=== PATIENT | female | born 1980 | race Caucasian/White ===

== ENCOUNTER 2018-10-18 14:24 | Emergency (ER) | payer MEDICAID ==
[2018-10-18 14:28] VITALS: BP 152/111
--- NOTE | 2018-10-18 14:41 | ER Report ---
History and Physical Time Seen By MD: 14:39 HPI/ROS CHIEF COMPLAINT: Alcohol abuse HISTORY OF PRESENT ILLNESS: 38 year female comes emergency department today asking for alcohol detoxification admission for inpatient management. Patient states she drinks heavily about a 5th of vodka daily. Patient states she's been doing this for about a year and a half but is been a relatively heavy drinker for the last 5 years. Patient states she has lost all custody of both of her daughters. Patient states she does live alone drinks daily. Patient is unable to work and financial supported by her estranged . Patient denies being suicidal homicidal or gravely disabled. Patient states she denies alcohol use correction alcohol but does deny drug use except for marijuana. Patient has no physical complaints. REVIEW OF SYSTEMS: Respiratory: No cough, no dyspnea. Cardiovascular: No chest pain, no palpitations. Gastrointestinal: No vomiting, no abdominal pain. Musculoskeletal: No back pain. Remainder of the 14 system rev: Yes Allergies: Coded Allergies: No Known Drug Allergies (Unverified , 10/18/18) Home Meds Reported Medications Gabapentin (GABAPENTIN) 300 Mg Capsule, PO TID, CAPSULE 10/18/18 Omeprazole (OMEPRAZOLE) 40 Mg Capsule.dr, 1 CAP PO QDAY 10/18/18 Levothyroxine Sodium (LEVOTHYROXINE SODIUM) 50 Mcg Tablet, 1 TAB PO QAM 10/18/18 Quetiapine Fumarate (SEROQUEL) 25 Mg Tablet, PO QHS 10/18/18 Duloxetine Hcl (CYMBALTA) 60 Mg Capsule.dr, 60 MG PO BID, #10 CAP 10/18/18 Reviewed Nurses Notes: Yes Old Medical Records Reviewed: Yes Constitutional Vital Sign - Last 24 Hours 10/18/18 10/18/18 14:28 14:28 Temp 98.5 Pulse 122 Resp 20 B/P (MAP) 152/111 Pulse Ox 94 O2 Delivery Room Air O2 Flow Rate 2.0 Physical Exam General Appearance: [The patient is alert, has no immediate need for airway protection and no current signs of toxicity.] [ ] Eyes: Pupils equal and round no injection. Respiratory: Chest is non tender, lungs are clear to auscultation. Cardiac: regular rate and rhythm [ ] Gastrointestinal: Abdomen is soft and non tender, no masses, bowel sounds normal. Musculoskeletal: Neck: Neck is supple and non tender. Extremities have full range of motion and are non tender. Skin: No rashes or lesions. [ ] DIFFERENTIAL DIAGNOSIS: After history and physical exam differential diagnosis was considered for alcohol abuse alcohol intoxication Medical Decision Making Data Points Result Diagram: 10/18/18 1449 10/18/18 1449 Laboratory Hematology Test 10/18/18 14:28 10/18/18 14:49 Urine Color Clau Urine Clarity Slightly-cloudy Urine pH 6.0 pH (4.8-9.5) Urine Specific [place] 1.019 Urine Protein 100 mg/dL (NEGATIVE) Urine Glucose (UA) Negative mg/dL (NEGATIVE) Urine Ketones Negative mg/dL (NEGATIVE) Urine Blood Small (NEGATIVE) Urine Nitrite Negative (NEGATIVE) Urine Bilirubin Negative (NEGATIVE) Urine Urobilinogen 1.0 mg/dL (0.2-1.9) Urine Leukocyte Esterase Negative (NEGATIVE) Urine RBC 1 /HPF (0-2/HPF) Urine WBC 5 /HPF (0-5/HPF) Urine Squamous Epithelial Cells Many /LPF (</=FEW) Urine Bacteria Few /HPF (NONE-FEW) Urine Hyaline Casts Many /LPF (NONE-FEW) Urine Mucus Few /HPF (NONE-FEW) Urine HCG, Qualitative Negative (NEGATIVE) Urine Opiates Screen Negative Urine Barbiturates Screen Negative Ur Tricyclic Antidepressants Screen Negative Urine Phencyclidine Screen Negative Urine Amphetamines Screen Negative Urine Benzodiazepines Screen Positive Urine Cocaine Screen Negative Urine Cannabinoids Screen Negative Red Blood Count 5.36 M/uL (4.17-5.56) Mean Corpuscular Volume 101.3 fL (80.0-96.0) Mean Corpuscular Hemoglobin 34.2 pg (26.0-33.0) Mean Corpuscular Hemoglobin Concent 33.7 g/dL (32.0-36.0) Red Cell Distribution Width 14.6 % (11.5-14.5) Mean Platelet Volume 8.6 fL (7.2-11.1) Neutrophils (%) (Auto) 40.3 % (39.4-72.5) Lymphocytes (%) (Auto) 48.6 % (17.6-49.6) Monocytes (%) (Auto) 10.3 % (4.1-12.4) Eosinophils (%) (Auto) 0.4 % (0.4-6.7) Basophils (%) (Auto) 0.4 % (0.3-1.4) Nucleated RBC Relative Count (auto) 0.2 /100WBC Neutrophils # (Auto) 2.1 K/uL (2.0-7.4) Lymphocytes # (Auto) 2.6 K/uL (1.3-3.6) Monocytes # (Auto) 0.5 K/uL (0.3-1.0) Eosinophils # (Auto) 0.0 K/uL (0.0-0.5) Basophils # (Auto) 0.0 K/uL (0.0-0.1) Nucleated RBC Absolute Count (auto) 0.01 K/uL Sodium Level 146 mmol/L (137-145) Potassium Level 3.1 mmol/L (3.5-5.0) Chloride Level 101 mmol/L (98-107) Carbon Dioxide Level 31 mmol/L (22-31) Blood Urea Nitrogen 3 mg/dl (7-18) Creatinine 0.90 mg/dl (0.52-1.04) Glomerular Filtration Rate Calc > 60.0 Random Glucose 203 mg/dl (75-110) Calcium Level 9.4 mg/dl (8.4-10.2) Magnesium Level 1.7 mg/dl (1.7-2.2) Total Bilirubin 0.8 mg/dl (0.2-1.3) Aspartate Amino Transf (AST/SGOT) 297 U/L (0-35) Alanine Aminotransferase (ALT/SGPT) 81 U/L (0-56) Alkaline Phosphatase 170 U/L (0-126) Total Protein 9.3 g/dl (6.3-8.2) Albumin 4.8 g/dl (3.5-5.0) Salicylates Level < 10 mg/L Salicylate Last Dose Date unk Acetaminophen Level < 10 ug/ml Serum Alcohol 393 mg/dl Chemistry Test 10/18/18 14:28 10/18/18 14:49 Urine Color Clau Urine Clarity Slightly-cloudy Urine pH 6.0 pH (4.8-9.5) Urine Specific [place] 1.019 Urine Protein 100 mg/dL (NEGATIVE) Urine Glucose (UA) Negative mg/dL (NEGATIVE) Urine Ketones Negative mg/dL (NEGATIVE) Urine Blood Small (NEGATIVE) Urine Nitrite Negative (NEGATIVE) Urine Bilirubin Negative (NEGATIVE) Urine Urobilinogen 1.0 mg/dL (0.2-1.9) Urine Leukocyte Esterase Negative (NEGATIVE) Urine RBC 1 /HPF (0-2/HPF) Urine WBC 5 /HPF (0-5/HPF) Urine Squamous Epithelial Cells Many /LPF (</=FEW) Urine Bacteria Few /HPF (NONE-FEW) Urine Hyaline Casts Many /LPF (NONE-FEW) Urine Mucus Few /HPF (NONE-FEW) Urine HCG, Qualitative Negative (NEGATIVE) Urine Opiates Screen Negative Urine Barbiturates Screen Negative Ur Tricyclic Antidepressants Screen Negative Urine Phencyclidine Screen Negative Urine Amphetamines Screen Negative Urine Benzodiazepines Screen Positive Urine Cocaine Screen Negative Urine Cannabinoids Screen Negative White Blood Count 5.3 k/uL (4.5-11.0) Red Blood Count 5.36 M/uL (4.17-5.56) Hemoglobin 18.3 g/dL (12.0-16.0) Hematocrit 54.3 % (34.0-47.0) Mean Corpuscular Volume 101.3 fL (80.0-96.0) Mean Corpuscular Hemoglobin 34.2 pg (26.0-33.0) Mean Corpuscular Hemoglobin Concent 33.7 g/dL (32.0-36.0) Red Cell Distribution Width 14.6 % (11.5-14.5) Platelet Count 144 K/uL (150-450) Mean Platelet Volume 8.6 fL (7.2-11.1) Neutrophils (%) (Auto) 40.3 % (39.4-72.5) Lymphocytes (%) (Auto) 48.6 % (17.6-49.6) Monocytes (%) (Auto) 10.3 % (4.1-12.4) Eosinophils (%) (Auto) 0.4 % (0.4-6.7) Basophils (%) (Auto) 0.4 % (0.3-1.4) Nucleated RBC Relative Count (auto) 0.2 /100WBC Neutrophils # (Auto) 2.1 K/uL (2.0-7.4) Lymphocytes # (Auto) 2.6 K/uL (1.3-3.6) Monocytes # (Auto) 0.5 K/uL (0.3-1.0) Eosinophils # (Auto) 0.0 K/uL (0.0-0.5) Basophils # (Auto) 0.0 K/uL (0.0-0.1) Nucleated RBC Absolute Count (auto) 0.01 K/uL Glomerular Filtration Rate Calc > 60.0 Calcium Level 9.4 mg/dl (8.4-10.2) Magnesium Level 1.7 mg/dl (1.7-2.2) Total Bilirubin 0.8 mg/dl (0.2-1.3) Aspartate Amino Transf (AST/SGOT) 297 U/L (0-35) Alanine Aminotransferase (ALT/SGPT) 81 U/L (0-56) Alkaline Phosphatase 170 U/L (0-126) Total Protein 9.3 g/dl (6.3-8.2) Albumin 4.8 g/dl (3.5-5.0) Salicylates Level < 10 mg/L Salicylate Last Dose Date unk Acetaminophen Level < 10 ug/ml Serum Alcohol 393 mg/dl Toxicology Test 10/18/18 14:28 10/18/18 14:49 Urine Opiates Screen Negative Urine Barbiturates Screen Negative Ur Tricyclic Antidepressants Screen Negative Urine Phencyclidine Screen Negative Urine Amphetamines Screen Negative Urine Benzodiazepines Screen Positive Urine Cocaine Screen Negative Urine Cannabinoids Screen Negative Salicylates Level < 10 mg/L Salicylate Last Dose Date unk Acetaminophen Level < 10 ug/ml Serum Alcohol 393 mg/dl Urinalysis Test 10/18/18 14:28 Urine Color Clau Urine Clarity Slightly-cloudy Urine pH 6.0 pH (4.8-9.5) Urine Specific [place] 1.019 Urine Protein 100 mg/dL (NEGATIVE) Urine Glucose (UA) Negative mg/dL (NEGATIVE) Urine Ketones Negative mg/dL (NEGATIVE) Urine Blood Small (NEGATIVE) Urine Nitrite Negative (NEGATIVE) Urine Bilirubin Negative (NEGATIVE) Urine Urobilinogen 1.0 mg/dL (0.2-1.9) Urine Leukocyte Esterase Negative (NEGATIVE) Urine RBC 1 /HPF (0-2/HPF) Urine WBC 5 /HPF (0-5/HPF) Urine Squamous Epithelial Cells Many /LPF (</=FEW) Urine Bacteria Few /HPF (NONE-FEW) Urine Hyaline Casts Many /LPF (NONE-FEW) Urine Mucus Few /HPF (NONE-FEW) Urine HCG, Qualitative Negative (NEGATIVE) ED Course/Re-evaluation ED Course ED course 38-year-old female comes in for alcohol detoxification alcohol abuse is requesting inpatient seen and evaluated by behavioral health admitted to behavioral services Ciara Ruffin 393 she does have AST and ALTs ray shows consistent with liver dysfunction from alcohol abuse evidently she also been recently released from care home for DY patient is signing is a voluntary admission for alcohol abuse and detoxification Decision to Disposition Date: October 18, 2018 Decision to Disposition Time: 15:50 Depart Departure Latest Vital Signs Vital Signs Date Time Temp Pulse Resp B/P (MAP) Pulse Ox O2 Delivery O2 Flow Rate FiO2 10/18/18 14:28 98.5 122 20 152/111 94 Room Air 10/18/18 14:28 2.0 Impression: Primary Impression: Alcohol abuse Condition: Stable Disposition: Admitted from ER LIANNE SEE MD October 18, 2018 14:41
[2018-10-18] MEDS ORDERED: ONDANSETRON 4 MG ODT TABDP SL ONE (14:55)
[2018-10-18 15:02] LABS: PLATELET COUNT, AUTOMATED 144 K/uL (150-450)
[2018-10-18] MEDS ORDERED: OMEP40CA48 PO (15:26)
[2018-10-18] MEDS ORDERED: QUET25TA30 PO (15:26)
[2018-10-18] MEDS ORDERED: LEVO50TA86 PO (15:26)
[2018-10-18] MEDS ORDERED: DULO60CA56 PO (15:26)
[2018-10-18] MEDS ORDERED: GABA-549 PO (15:26)
== END 2018-10-18 16:20 | disposition other institution (70) ==
LOC: ER 14:49
DX: F10.220 Alcohol dependence with intoxication, uncomplicated (principal); Y90.8 Blood alcohol level of 240 mg/100 ml or more
CPT/HCPCS: 36415; 80305; 81001; 81025; 83735; 84443; 85025; 99284; G0480; S0119; 80320; 80329; 82040; 82247; 82310; 82374; 82435; 82565; 82947; 84075; 84132; 84155; 84295; 84450; 84460; 84520

== ENCOUNTER 2018-10-18 15:55 | Inpatient (IN) | payer MEDICAID ==
[~2018-10-18] VITALS: Ht 172.7 cm; Wt 93.4 kg
[~2018-10-18 15:55] MED LIST: DULO60CA56 PO; GABA-549 PO; LEVO50TA86 PO; OMEP40CA48 PO; QUET25TA30 PO
[2018-10-18 16:45] VITALS: BP 130/98
[2018-10-18] MEDS ORDERED: NICOTINE CARTRIDGE 1 EA PO PRN (17:30)
[2018-10-18] MEDS ORDERED: MAG HYD/AL HYD/SIMETH 30ML UDC PO PRN (17:45)
[2018-10-18 18:30] VITALS: BP 132/112
[2018-10-18 19:28] VITALS: BP 130/100
[2018-10-18] MEDS: DIAZEPAM 10 MG TAB PO PRN ×3 (20:42→23:16)
[2018-10-18] MEDS: PANTOPRAZOLE SOD 20 MG TABEC PO SCH (20:42)
[2018-10-18] MEDS: DULoxetine HCL 30 MG CAPCR PO SCH (20:43)
[2018-10-18] MEDS: GABAPENTIN 300 MG CAP PO SCH (20:43)
[2018-10-19 01:00] VITALS: BP 134/98
[2018-10-19] MEDS: DIAZEPAM 10 MG TAB PO PRN ×16 (01:07→21:34)
[2018-10-19] MEDS: LEVOTHYROXINE SOD 0.05 MG TAB PO SCH (06:00)
[2018-10-19 06:08] VITALS: BP 127/100
[2018-10-19 07:50] VITALS: BP 140/106
[2018-10-19] MEDS: FOLIC ACID 1 MG TAB PO SCH (08:32)
[2018-10-19] MEDS: MULTIVITAMINS PO SCH (08:32)
[2018-10-19] MEDS: THIAMINE HCL 100 MG TAB PO SCH (08:32)
[2018-10-19] MEDS: DULoxetine HCL 30 MG CAPCR PO SCH ×2 (08:32→20:20)
[2018-10-19] MEDS: PANTOPRAZOLE SOD 20 MG TABEC PO SCH (08:32)
[2018-10-19] MEDS: GABAPENTIN 300 MG CAP PO SCH ×3 (08:32→20:20)
[2018-10-19] MEDS ORDERED: LOPERAMIDE HCL 2 MG CAP PO PRN (08:55)
[2018-10-19] MEDS ORDERED: LOPERAMIDE HCL 2 MG CAP PO ONE (08:55)
[2018-10-19 11:05] VITALS: BP 138/104
[2018-10-19] MEDS: ONDANSETRON 4 MG TAB PO PRN (12:09)
[2018-10-19] MEDS ORDERED: LISINOPRIL 10 MG TAB PO ONE (16:45)
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
[2018-10-19 19:09] VITALS: BP 129/92
[2018-10-20] MEDS: LEVOTHYROXINE SOD 0.05 MG TAB PO SCH (06:13)
[2018-10-20 06:30] VITALS: BP 104/61
[2018-10-20] MEDS: MULTIVITAMINS PO SCH (08:19)
[2018-10-20] MEDS: GABAPENTIN 300 MG CAP PO SCH ×3 (08:19→21:01)
[2018-10-20] MEDS: DULoxetine HCL 30 MG CAPCR PO SCH ×2 (08:20→21:01)
[2018-10-20] MEDS: THIAMINE HCL 100 MG TAB PO SCH (08:20)
[2018-10-20] MEDS: FOLIC ACID 1 MG TAB PO SCH (08:20)
[2018-10-20] MEDS: PANTOPRAZOLE SOD 20 MG TABEC PO SCH (08:20)
[2018-10-20] MEDS: ONDANSETRON 4 MG TAB PO PRN (08:24)
[2018-10-20] MEDS ORDERED: LISINOPRIL 10 MG TAB PO SCH (09:00)
[2018-10-20] MEDS: IBUPROFEN 600 MG TAB PO PRN ×2 (12:20→19:25)
[2018-10-20] MEDS: DIAZEPAM 10 MG TAB PO PRN ×3 (12:35→19:25)
[2018-10-20 15:43] VITALS: BP 108/82
--- NOTE | 2018-10-20 17:15 | BHS Progress Note ---
[facility] - Subjective Progress Notes Subjective Deisy is still in withdrawal. We have been medicating her per the [facility] protocol but concerned about her oxygen desaturations. After a dose of 10 mgs earlier today, she dozed off and was desaturating into the 70's. When we administered oxygen per the nasal cannula, this stabilized, but was a source of concern. She has not been as hypertensive as expected with the lisinopril I started yesterday. We stopped it fearing she might become hypotensive if it were continued. I spoke to Deisy briefly early this afternoon. She is drowsy from the diazepam but says that she is fine. She was uncomfortable before the Valium and is getting relief with it. Deisy's fasting blood sugar was 116 this morning and her hemoglobin A1c was 6.2 suggesting she has diabetes. I do not know if this is related to pancreatic damage or to insulin resistance or both. [facility] - Objective Physical Exam Vital Signs Vital Signs 10/19/18 10/20/18 10/20/18 19:09 06:30 13:50 Temp 96.7 Pulse 99 Resp 15 B/P (MAP) 104/61 (75) Pulse Ox 76 O2 Delivery Nasal Cannula O2 Flow Rate 2.0 Muscle Strength and Tone: Other (is sedated with the diazepam) Gait and Station: Unsteady [facility] Medications Reviewed: Side Effects, Benefits of Medication, Risks Allergies Reviewed: Yes Mental Status Exam General Appearance: Casual, Well Groomed, Good Eye Contact, Cooperative, Polite, Good Interaction Speech: Clear, Delayed, Other (sleepy) Mood: Euthymic Affect: Other (calm but drowsy) Thought Process: Organized, Logical Cognition: Other (sleepy) Intelligence: Average Insight Judgment: Good Lab Hematology Test 10/19/18 00:00 10/19/18 05:54 Fasting Glucose 113 mg/dl (75-110) Hemoglobin A1c 6.2 % (4.6-6.0) Chemistry Test 10/19/18 00:00 10/19/18 05:54 Fasting Glucose 113 mg/dl (75-110) Hemoglobin A1c 6.2 % (4.6-6.0) [facility] Assessment and Plan [id number] Encounter Date: October 20, 2018 [id number] Encounter Time: 13:30 [facility] Plan: Admit to Unit, Necessary Precautions, Individual/Group Therapy, Admin/Titrate Meds, Educate Patient Problems: (1) Hyperglycemia Status: Chronic Assessment & Plan: Will need to address hyperglycemia once withdrawal is comp leted. (2) Obesity (BMI 30-39.9) Status: Chronic (3) Alcohol withdrawal Status: Acute (4) Alcohol use disorder, severe, dependence (5) Hypoxemia requiring supplemental oxygen Status: Acute Assessment & Plan: Will reduce typical dose of diazepam on the [facility] protocol and continue supplemental oxygen when asleep. THEODORE NG DO October 20, 2018 17:15
[2018-10-20] MEDS: DIAZEPAM 5 MG TAB PO PRN ×2 (21:01→22:06)
[2018-10-21 05:45] VITALS: BP 125/89
[2018-10-21] MEDS: LEVOTHYROXINE SOD 0.05 MG TAB PO SCH (05:45)
[2018-10-21] MEDS: ONDANSETRON 4 MG TAB PO PRN (08:04)
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
[2018-10-21] MEDS: GABAPENTIN 300 MG CAP PO SCH ×3 (09:04→21:10)
[2018-10-21] MEDS: DULoxetine HCL 30 MG CAPCR PO SCH ×2 (09:04→21:10)
[2018-10-21] MEDS: PANTOPRAZOLE SOD 20 MG TABEC PO SCH (09:04)
[2018-10-21] MEDS: FOLIC ACID 1 MG TAB PO SCH (09:04)
[2018-10-21] MEDS: IBUPROFEN 600 MG TAB PO PRN (09:04)
[2018-10-21] MEDS: THIAMINE HCL 100 MG TAB PO SCH (09:04)
[2018-10-21] MEDS: MULTIVITAMINS PO SCH (09:04)
[2018-10-21 09:45] VITALS: BP 126/82
[2018-10-21] MEDS: DIAZEPAM 5 MG TAB PO PRN ×4 (10:43→21:10)
[2018-10-21 12:45] VITALS: BP 122/88
[2018-10-21] MEDS: NICOTINE INH SYSTEM 10 MG/INH INH PRN (18:24)
[2018-10-21 21:15] VITALS: BP_SYST 123; BP_SYST 140; BP_DIAS 105; BP_DIAS 99
[2018-10-22 06:00] VITALS: BP 130/101
[2018-10-22] MEDS: LEVOTHYROXINE SOD 0.05 MG TAB PO SCH (06:00)
[2018-10-22] MEDS: PANTOPRAZOLE SOD 20 MG TABEC PO SCH (08:29)
[2018-10-22] MEDS: GABAPENTIN 300 MG CAP PO SCH ×3 (08:29→21:05)
[2018-10-22] MEDS: FOLIC ACID 1 MG TAB PO SCH (08:29)
[2018-10-22] MEDS: THIAMINE HCL 100 MG TAB PO SCH (08:29)
[2018-10-22] MEDS: MULTIVITAMINS PO SCH (08:29)
[2018-10-22] MEDS: DULoxetine HCL 30 MG CAPCR PO SCH ×2 (08:30→21:06)
[2018-10-22] MEDS: IBUPROFEN 600 MG TAB PO PRN ×2 (08:32→18:03)
--- NOTE | 2018-10-22 09:48 | BHS Progress Note ---
S - Subjective Progress Notes Subjective Deisy is feeling better physically today. She needed 20 mgs of Valium yesterday but the withdrawal has been controlled and we have used lower doses of Valium than we usually do because of Deisy's hypoxemia. Last dose was last night. She still has some nausea, did not sleep well because she couldn't get comfortable and woke up a lot. Deisy talked to brother by phone. She has moved to [place] and she did not know as they had not talked in some time. "He kind of gave me a lecture" but she was glad she called him. We talked about who else could give her support. Deisy has written a letter entitled "Why I need to go to treatment" and she read it to us. The letter was compelling. She said she wants to "live . . . save my live . . . be a great mom." She feels a lot of shame and guilt because of her drinking and she talked about that. "I need help with the emotions I have covered up with drinking." She talked about the stresses contributing to her drinking including the loss of her parents as well as social isolation. We talked about aftercare options since Deisy will complete her detox before she can go to residential treatment. I suggested she not go to her house and suggested [facility] in [place]. Suicidal Ideation: None Homicidal Ideation: None S - Objective Physical Exam Vital Signs Vital Signs 10/22/18 10/22/18 10/22/18 06:00 14:00 17:59 Temp 97.8 Pulse 80 Resp 18 B/P (MAP) 122/90 (101) Pulse Ox 92 O2 Delivery Room Air O2 Flow Rate 2.0 Muscle Strength and Tone: WNL Gait and Station: Steady [facility] Medications Reviewed: Side Effects, Benefits of Medication, Risks Allergies Reviewed: Yes Mental Status Exam General Appearance: Casual, Well Groomed, Good Eye Contact, Cooperative, Polite, Good Interaction Speech: Clear, Spontaneous, Normal Rate, Normal Rhythm, Normal Volume, Normal Tone Mood: Dysthmic/Depressed Affect: Full and Appropriate, Sad, Tearful Thought Process: Organized, Logical, Goal Directed Thought Content: No Suicidal Ideation, No Homicidal Ideation Sensorium: Clear Cognition: Alert & Oriented-Person, Alert & Oriented-Place, Alert & Oriented- Time, Bofkr-Jkygohqs-Gmlvtxytz Memory: Immediate, Recent, Remote Intelligence: Average Insight Judgment: Good [facility] Assessment and Plan Alfz-dp-Rgnw Encounter Date: October 22, 2018 Kpqm-ce-Ztbc Encounter Time: 10:30 [facility] Plan: Admit to Unit, Necessary Precautions, Individual/Group Therapy, Admin/Titrate Meds, Educate Patient Problems: (1) Hyperglycemia Status: Chronic Assessment & Plan: We need to recheck Deisy's blood sugar once she has completed detox and she may need to start metformin. We talked about her risk of diabetes and the importance of weight loss. (2) Obesity (BMI 30-39.9) Status: Chronic (3) Alcohol withdrawal Status: Acute (4) Alcohol use disorder, severe, dependence (5) Hypoxemia requiring supplemental oxygen Status: Acute Assessment & Plan: I have ordered an overnight pulse oximetry to be dong tomorrow night when Deisy is, hopefully, no longer on Valium. She has many symptoms suggestive of SUZANNE. Problem Qualifiers (1) Alcohol withdrawal: Complication of substance-induced condition: uncomplicated Qualified Codes: F10.230 - Alcohol dependence with withdrawal, uncomplicated THEODORE NG DO October 22, 2018 09:48
[2018-10-22 10:15] VITALS: BP 124/92
[2018-10-22] MEDS: DIAZEPAM 5 MG TAB PO PRN ×3 (10:22→20:13)
[2018-10-22 14:00] VITALS: BP 124/88
[2018-10-22 17:59] VITALS: BP 122/90
[2018-10-22] MEDS: ONDANSETRON 4 MG TAB PO PRN (18:03)
[2018-10-23] MEDS: LEVOTHYROXINE SOD 0.05 MG TAB PO SCH (05:52)
[2018-10-23 06:01] VITALS: BP 125/85
[2018-10-23] MEDS: GABAPENTIN 300 MG CAP PO SCH ×3 (08:18→20:53)
[2018-10-23] MEDS: MULTIVITAMINS PO SCH (08:18)
[2018-10-23] MEDS: FOLIC ACID 1 MG TAB PO SCH (08:18)
[2018-10-23] MEDS: DULoxetine HCL 30 MG CAPCR PO SCH ×2 (08:18→20:53)
[2018-10-23] MEDS: THIAMINE HCL 100 MG TAB PO SCH (08:18)
[2018-10-23] MEDS: PANTOPRAZOLE SOD 20 MG TABEC PO SCH (08:18)
[2018-10-23 09:57] VITALS: BP 130/96
[2018-10-23] MEDS: DIAZEPAM 5 MG TAB PO PRN (10:38)
[2018-10-23] MEDS: IBUPROFEN 600 MG TAB PO PRN (10:39)
[2018-10-23 13:00] VITALS: BP 117/89
[2018-10-23] MEDS: NICOTINE INH SYSTEM 10 MG/INH INH PRN ×2 (13:59→16:57)
--- NOTE | 2018-10-23 15:27 | RADIOLOGY IMAGING REPORT ---
FACILITY: [facility] PATIENT NAME: Deisy Song : 1980 MR: [id number] V: [id number] EXAM DATE: ORDERING PHYSICIAN: KATHI BHATTI TECHNOLOGIST: Location: [facility] Patient: Deisy Song : 1980 Visit/Account:[id number] Date of Sevice: 10/23/2018 CHEST PA LAT COMPARISON: None. HISTORY: Hypoxemia FINDINGS: CARDIAC/VASC: No cardiac silhouette abnormality or cardiomegaly. Unremarkable pulmonary vasculatu re. MEDIASTINUM: No visible mass or adenopathy. LUNGS/PLEURA: No pneumothorax. No significant pulmonary parenchymal abnormalities. No effusion or p leural thickening. BONES: No fracture or visible bony lesion. Mild multilevel thoracic spine degenerative changes. OTHER: Cholecystectomy clips in the right upper quadrant of the abdomen IMPRESSION: No acute cardiopulmonary process. Report Dictated By: Jason Porter at 10/23/2018 3:22 PM Report E-Signed By: Jason Porter at 10/23/2018 3:23 PM WSN:[id number]
[2018-10-23] MEDS ORDERED: LORazepam 1 MG TAB PO PRN (19:50)
[2018-10-23 20:15] VITALS: BP 122/98
--- NOTE | 2018-10-23 21:11 | BHS Progress Note ---
[facility] - Subjective Progress Notes Subjective Pt seen in treatment team meeting. Pt still scoring on CIWA, though scores lower bit by bit. Says she doesn't like how the valium makes her feel slowed down but understands need for safe detox.. if she continues to score on CIWA we will try ativan, and she was OK with this. She is discouraged today because of the holiday, since we can't contact rehab programs-- she would like to get into [facility] in [place]. Will go ahead and fax her application there today, then contact them tomorrow. PPD was negative. Pt is attending groups and is active in her treatment. Continue same. Suicidal Ideation: None Homicidal Ideation: None [facility] - Objective Physical Exam Vital Signs Vital Signs 10/23/18 10/23/18 06:01 13:00 Temp 98.3 Pulse 91 Resp 15 B/P (MAP) 117/89 (98) Pulse Ox 88 O2 Delivery Room Air O2 Flow Rate 1.0 Muscle Strength and Tone: WNL Gait and Station: Steady [facility] Medications Reviewed: Side Effects, Benefits of Medication, Risks Allergies Reviewed: Yes Mental Status Exam General Appearance: Casual, Well Groomed, Good Eye Contact, Cooperative, Polite, Good Interaction Speech: Clear, Spontaneous, Normal Rate, Normal Rhythm, Normal Volume, Normal Tone Mood: Dysthmic/Depressed Affect: Full and Appropriate, Sad, Tearful Thought Process: Organized, Logical, Goal Directed Thought Content: No Suicidal Ideation, No Homicidal Ideation, No Delusions, No Auditory Halllucinations, No Visual Hallucinations, No Thought Broadcasting, No Ideas of Reference, No Obsessions, No Compulsions, No Other Sensorium: Clear Cognition: Alert & Oriented-Person, Alert & Oriented-Place, Alert & Oriented- Time, Ljwgr-Tychrnwl-Oxmxhwykm Memory: Immediate, Recent, Remote Intelligence: Average Insight Judgment: Good [facility] Assessment and Plan Nvln-do-Qtqi Encounter Date: October 23, 2018 Seqy-ll-Slik Encounter Time: 11:00 [facility] Plan: Necessary Precautions, Individual/Group Therapy, Admin/Titrate Meds, Educate Patient Tobacco Medications: Started Multpiple Antipsychotics Used: No Problems: (1) Alcohol use disorder, severe, dependence (2) Alcohol withdrawal Status: Acute Problem Qualifiers (1) Alcohol withdrawal: Complication of substance-induced condition: uncomplicated Qualified Codes: F10.230 - Alcohol dependence with withdrawal, uncomplicated KATHI BHATTI MD October 23, 2018 21:11
[2018-10-24] MEDS: LEVOTHYROXINE SOD 0.05 MG TAB PO SCH (05:17)
[2018-10-24 05:30] VITALS: BP 117/79
[2018-10-24] MEDS: DULoxetine HCL 30 MG CAPCR PO SCH ×2 (08:23→20:39)
[2018-10-24] MEDS: FOLIC ACID 1 MG TAB PO SCH (08:23)
[2018-10-24] MEDS: MULTIVITAMINS PO SCH (08:24)
[2018-10-24] MEDS: PANTOPRAZOLE SOD 20 MG TABEC PO SCH (08:24)
[2018-10-24] MEDS: THIAMINE HCL 100 MG TAB PO SCH (08:24)
[2018-10-24] MEDS: GABAPENTIN 300 MG CAP PO SCH ×3 (08:24→20:39)
[2018-10-24 08:30] VITALS: BP 144/105
[2018-10-24] MEDS: IBUPROFEN 600 MG TAB PO PRN (09:52)
[2018-10-24] MEDS: NALTREXONE HCL 50 MG TAB PO SCH (09:52)
--- NOTE | 2018-10-24 09:54 | BHS Progress Note ---
[facility] - Subjective Progress Notes Subjective Pt seen in conference room. Detox is near complete, last benzo was last night at 10 pm. She scored 8 on CIWA today-- medicated with advil for [place], not given a benzo. Pt had continuous pulse ox last night which shows likely sleep apnea, will refer for sleep study. CXR was WNL. Looking for a detox bed, application sent to [facility]. She was refused at [facility] because they no longer house pt's who are waiting for rehab. Suicidal Ideation: None Homicidal Ideation: None S - Objective Physical Exam Vital Signs Vital Signs 10/23/18 10/24/18 06:01 08:30 Temp 98.4 Pulse 109 Resp 18 B/P (MAP) 144/105 (118) Pulse Ox 87 O2 Delivery Room Air O2 Flow Rate 1.0 Muscle Strength and Tone: WNL Gait and Station: Steady [facility] Medications Reviewed: Side Effects, Benefits of Medication, Risks Allergies Reviewed: Yes Mental Status Exam General Appearance: Casual, Well Groomed, Good Eye Contact, Cooperative, Polite, Good Interaction Speech: Clear, Spontaneous, Normal Rate, Normal Rhythm, Normal Volume, Normal Tone Mood: Dysthmic/Depressed Affect: Full and Appropriate, Sad Thought Process: Organized, Logical, Goal Directed Thought Content: No Suicidal Ideation, No Homicidal Ideation, No Delusions, No Auditory Halllucinations, No Visual Hallucinations, No Thought Broadcasting, No Ideas of Reference, No Obsessions, No Compulsions, No Other Sensorium: Clear Cognition: Alert & Oriented-Person, Alert & Oriented-Place, Alert & Oriented- Time, Jhrrg-Ibrhtttr-Mqoncoaxc Memory: Immediate, Recent, Remote Intelligence: Average Insight Judgment: Good [facility] Assessment and Plan Sghb-xs-Tpwm Encounter Date: October 24, 2018 Uofh-ea-Ncpn Encounter Time: 09:00 [facility] Plan: Necessary Precautions, Individual/Group Therapy, Admin/Titrate Meds, Educate Patient Tobacco Medications: Started Multpiple Antipsychotics Used: No Problems: (1) Alcohol use disorder, severe, dependence (2) Alcohol withdrawal Status: Acute Problem Qualifiers (1) Alcohol withdrawal: Complication of substance-induced condition: uncomplicated Qualified Codes: F10.230 - Alcohol dependence with withdrawal, uncomplicated KATHI BHATTI MD October 24, 2018 09:54
[2018-10-24 12:30] VITALS: BP 122/96
[2018-10-24 14:20] VITALS: BP 128/98
[2018-10-24 18:23] VITALS: BP 128/90
[2018-10-24] MEDS: NICOTINE INH SYSTEM 10 MG/INH INH PRN (21:09)
[2018-10-25] MEDS: LEVOTHYROXINE SOD 0.05 MG TAB PO SCH (05:41)
[2018-10-25 06:06] VITALS: BP 129/83
[2018-10-25] MEDS: FOLIC ACID 1 MG TAB PO SCH (08:25)
[2018-10-25] MEDS: DULoxetine HCL 30 MG CAPCR PO SCH ×2 (08:25→20:32)
[2018-10-25] MEDS: PANTOPRAZOLE SOD 20 MG TABEC PO SCH (08:25)
[2018-10-25] MEDS: NALTREXONE HCL 50 MG TAB PO SCH (08:25)
[2018-10-25] MEDS: GABAPENTIN 300 MG CAP PO SCH ×3 (08:25→20:31)
[2018-10-25] MEDS: THIAMINE HCL 100 MG TAB PO SCH (08:26)
[2018-10-25] MEDS: MULTIVITAMINS PO SCH (08:26)
[2018-10-25] MEDS: IBUPROFEN 600 MG TAB PO PRN (12:08)
[2018-10-25] MEDS: NICOTINE INH SYSTEM 10 MG/INH INH PRN (15:28)
--- NOTE | 2018-10-25 18:02 | BHS Progress Note ---
[facility] - Subjective Progress Notes Subjective Pt seen in treatment team meeting with her outpatient therapist on speaker phone. Pt has completed her detox. Pt was confronted by therapist bc they had already arranged a detox for her at [facility] but pt had not told us about that.... unclear to me if pt was manipulating us or if she just did not remember due to her alcohol abuse. In any case, we are working towards admission there with a possible bed date for Tuesday; we have arranged for her to have sleep study here night (tomorrow), it will be a split study and we will try to get c-pap for her before she goes to rehab IF we can. Pt c/o initial and middle insomnia; will add trazodone 100mg at HS. Suicidal Ideation: None Homicidal Ideation: None [facility] - Objective Physical Exam Vital Signs Vital Signs 10/25/18 06:06 Temp 99.0 Pulse 74 Resp 15 B/P (MAP) 129/83 (98) Pulse Ox 96 O2 Delivery Nasal Cannula O2 Flow Rate 2.0 Muscle Strength and Tone: WNL Gait and Station: Steady [facility] Medications Reviewed: Side Effects, Benefits of Medication, Risks Allergies Reviewed: Yes Mental Status Exam General Appearance: Casual, Well Groomed, Good Eye Contact, Cooperative, Polite, Good Interaction Speech: Clear, Spontaneous, Normal Rate, Normal Rhythm, Normal Volume, Normal Tone Mood: Dysthmic/Depressed Affect: Full and Appropriate, Sad Thought Process: Organized, Logical, Goal Directed Thought Content: No Suicidal Ideation, No Homicidal Ideation, No Delusions, No Auditory Halllucinations, No Visual Hallucinations, No Thought Broadcasting, No Ideas of Reference, No Obsessions, No Compulsions, No Other Sensorium: Clear Cognition: Alert & Oriented-Person, Alert & Oriented-Place, Alert & Oriented- Time, Whunv-Lejbnfwo-Pmtdbmopf Memory: Immediate, Recent, Remote Intelligence: Average Insight Judgment: Good [facility] Assessment and Plan Xuvg-ba-Ulgp Encounter Date: October 25, 2018 Qwjy-zv-Olij Encounter Time: 09:00 [facility] Plan: Necessary Precautions, Individual/Group Therapy, Admin/Titrate Meds, Educate Patient Tobacco Medications: Started Multpiple Antipsychotics Used: No Problems: (1) Alcohol use disorder, severe, dependence (2) Alcohol withdrawal Status: Acute Problem Qualifiers (1) Alcohol withdrawal: Complication of substance-induced condition: uncomplicated Qualified Codes: F10.230 - Alcohol dependence with withdrawal, uncomplicated KATHI BHATTI MD October 25, 2018 18:02
[2018-10-25] MEDS: traZODone HCL 50 MG TAB PO SCH (20:32)
[2018-10-25 21:50] VITALS: BP 123/92
[2018-10-26] MEDS: LEVOTHYROXINE SOD 0.05 MG TAB PO SCH (06:12)
[2018-10-26 06:41] VITALS: BP 133/90
[2018-10-26] MEDS: NALTREXONE HCL 50 MG TAB PO SCH (08:10)
[2018-10-26] MEDS: MULTIVITAMINS PO SCH (08:10)
[2018-10-26] MEDS: DULoxetine HCL 30 MG CAPCR PO SCH ×2 (08:10→20:46)
[2018-10-26] MEDS: PANTOPRAZOLE SOD 20 MG TABEC PO SCH (08:10)
[2018-10-26] MEDS: GABAPENTIN 300 MG CAP PO SCH ×3 (08:10→20:46)
[2018-10-26] MEDS: THIAMINE HCL 100 MG TAB PO SCH (08:10)
[2018-10-26] MEDS: FOLIC ACID 1 MG TAB PO SCH (08:10)
[2018-10-26 13:36] VITALS: BP 120/84
[2018-10-26] MEDS ORDERED: TRAZ100T31 PO ×2 (14:04)
[2018-10-26] MEDS ORDERED: PANT40TA65 PO (14:06)
[2018-10-26] MEDS ORDERED: NALT50TA15 PO (14:07)
[2018-10-26] MEDS ORDERED: NIC10R INH (14:09)
[2018-10-26] MEDS ORDERED: NICOTROL CARTRIDGE PO (14:10)
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
[2018-10-26] MEDS: NICOTINE INH SYSTEM 10 MG/INH INH PRN ×3 (16:16→20:51)
[2018-10-26] MEDS: traZODone HCL 50 MG TAB PO SCH (20:46)
== END 2018-10-26 20:59 | DRG 897 ==
LOC: BHS 15:55
PROVIDERS: ADMIT Psychiatry & Neurology Psychiatry; ATTEND Psychiatry & Neurology Psychiatry
DX: F10.230 Alcohol dependence with withdrawal, uncomplicated (principal); I10 Essential (primary) hypertension; K21.9 Gastro-esophageal reflux disease without esophagitis; R09.02 Hypoxemia; F17.210 Nicotine dependence, cigarettes, uncomplicated; E03.9 Hypothyroidism, unspecified; E66.9 Obesity, unspecified; Y90.8 Blood alcohol level of 240 mg/100 ml or more; R73.9 Hyperglycemia, unspecified; G47.30 Sleep apnea, unspecified; Z60.4 Social exclusion and rejection; Z56.0 Unemployment, unspecified; Z63.79 Other stressful life events affecting family and household; Z63.5 Disruption of family by separation and divorce; Z81.1 Family history of alcohol abuse and dependence; Z59.8 Other problems related to housing and economic circumstances; Z68.31 Body mass index [BMI] 31.0-31.9, adult; Z91.410 Personal history of adult physical and sexual abuse; Z91.5 Personal history of self-harm
CPT/HCPCS: 36415; 71046; 80305; 80320; 80329; 81001; 81025; 82040; 82247; 82310; 82374; 82435; 82565; 82947; 83036; 83735; 84075; 84132; 84155; 84295; 84443; 84450; 84460; 84520; 85025; 86580; 99284; S0119

== ENCOUNTER → 2018-10-26 | Outpatient (CLI) | payer MEDICAID ==
[~2018-10-26] MED LIST changes: +NALT50TA15 PO; +NIC10R INH; +NICOTROL CARTRIDGE PO; +PANT40TA65 PO; +TRAZ100T31 PO
== END ==
LOC: RESP 21:10
PROVIDERS: ATTEND Psychiatry & Neurology Psychiatry
DX: G47.33 Obstructive sleep apnea (adult) (pediatric) (principal); G47.36 Sleep related hypoventilation in conditions classified elsewhere